=== PATIENT | male | born 1980 | race Two or more races ===

== ENCOUNTER 2016-10-31 09:40 | Emergency (ER) | payer SELFPAY ==
[2016-10-31 09:43] VITALS: BP 145/94
[2016-10-31] MEDS ORDERED: Tetan/Diph/Pertus SYR(Tdap)* 0.5 ML SYR(BOOSTRIX) use SYR IM ONE (10:54)
[2016-10-31] MEDS ORDERED: Ibuprofen TAB* 600 MG PO ONE (10:54)
--- NOTE | 2016-10-31 11:20 | ED ---
Laceration/Wound HPI - HPI Summary HPI Summary: Patient was at work when his finger ran against a structure and he suffered a cut to the back of his right thumb. He applied direct pressure to control bleeding and came to the ED. He is not sure if his tetanus is up to date. He has full function of the thumb without N/T. - History of Current Complaint Stated Complaint: RT HAND LAC Time Seen by Provider: 10/31/16 09:46 Hx Obtained From: Patient Mechanism of Injury: Sharp/Blunt Trauma Onset/Duration: Sudden Onset Aggravating: Movement Alleviating: Compression Timing: Constant Onset Severity: Moderate Current Severity: Moderate Pain Intensity: 4 Associated Signs & Symptoms: Pain Related Hx: Dominant Hand (Right) - Allergy/Home Medications Allergies/Adverse Reactions: Allergies Allergy/AdvReac Type Severity Reaction Status Date / Time No Known Allergies Allergy Verified 12/23/13 11:06 PMH/Surg Hx/FS Hx/Imm Hx Respiratory History: Reports: Hx Asthma Sensory History: Reports: Hx Contacts or Glasses Opthamlomology History: Reports: Hx Contacts or Glasses Psychiatric History: Reports: Hx Suicide Attempt - OD AT 17YO Denies: Hx Eating Disorder, Hx of Violent Episodes Against Others Infectious Disease History: No Infectious Disease History: Denies: Traveled Outside the [place] in Last 30 Days - Family History Known Family History: Positive: None - Social History Occupation: Employed Full-time Lives: With Family Alcohol Use: Rare Substance Use Type: Reports: None Smoking Status (MU): Never Smoked Tobacco Review of Systems Positive: Other - 1 cm laceration to dorsum of right thumb Negative: Paresthesia, Numbness All Other Systems Reviewed And Are Negative: Yes Physical Exam Triage Information Reviewed: Yes Vital Signs On Initial Exam: Initial Vitals Temp Pulse Resp BP Pulse Ox 99.4 F 84 20 145/94 100 10/31/16 09:41 10/31/16 09:41 10/31/16 09:41 10/31/16 09:41 10/31/16 09:41 Vital Signs Reviewed: Yes Appearance: Positive: Well-Appearing, Well-Nourished, Pain Distress Skin: Positive: Warm, Skin Color Reflects Adequate Perfusion, Dry, Tender - 1 cm laceration to dorsum of right thumb, Soft Head/Face: Positive: Normal Head/Face Inspection Eyes: Positive: EOMI, MARGA, Conjunctiva Clear ENT: Positive: Hearing grossly normal Respiratory/Lung Sounds: Positive: Breath Sounds Present Cardiovascular: Positive: RRR Musculoskeletal: Positive: Strength/ROM Intact Neurological: Positive: Sensory/Motor Intact, Alert, Oriented to Person Place, Time, NV Bundle Intact Distally Psychiatric: Positive: Affect/Mood Appropriate AVPU Assessment: Alert Procedures - Laceration/Wound Repair 1 Location: upper extremity - dorsum of right thumb Description: Linear Anesthesia: Local, 2.0%, Lido Length, Depth and Shape: 1 cm long, 3 mm wide, 2 mm deep Betadine Prep?: No Irrigated w/ Saline (ccs): 100 Laceration/Wound Explored: clean Closure: Single Layer Debridement: minimal Suture Type: Nylon - 5.0 Number of Sutures: 5 Layer Closure?: No Sterile Dressing Applied?: Yes Diagnostics - Vital Signs Vital Signs Temp Pulse Resp BP Pulse Ox 10/31/16 09:43 97.9 F 77 20 145/94 100 10/31/16 09:41 99.4 F 84 20 145/94 100 - Laboratory Lab Statement: Any lab studies that have been ordered have been reviewed, and results considered in the medical decision making process. Laceration Repair Course/Dx - Differential Dx Differental Diagnoses: Abrasion, Avulsion, Cellulitis, Dehiscence, Hematoma, Laceration, Puncture Wound - Clinical Impression Provider Diagnoses: Laceration, Tetanus toxoid inoculation Discharge - Discharge Plan Condition: Stable Disposition: HOME Patient Education Materials: Finger Laceration (ED) Additional Instructions: Keep your dressing clean, dry and in place for the next 24 hours. You may then remove and shower. Pat dry and cover with a clean, dry band-aid if you are going to be in a "dirty" environment, otherwise it can remain open to air. Do not soak the wound in any body of water until the sutures are removed. Elevate the hand above your heart and use Ibuprofen 600mg three times daily with meals for the next 5-7 days to reduce pain and swelling. Follow-up with your primary care provider or return to the emergency department in 10-12 days for suture removal. Return to the emergency department sooner if your symptoms worsen.
== END 2016-10-31 12:15 | disposition home or self-care (01) ==
LOC: ED 09:40
DX: S61.011A Laceration without foreign body of right thumb without damage to nail, initial encounter (principal); W22.01XA Walked into wall, initial encounter; Y92.9 Unspecified place or not applicable; Y99.0 Civilian activity done for income or pay
CPT/HCPCS: 12001; 99281

== ENCOUNTER 2016-11-14 09:09 | Day surgery (SDC) | payer OTHER ==
[~2016-11-14 09:09] MED LIST: Buffered Lidocaine 1% SYRIN* 5 ML/SYR SYRINGE INTRADERM ONE; NS 0.9% 1000 ML* 1,000 ML IV SCH
[2016-11-14] MEDS ORDERED: Midazolam* 1 MG/ML 2 ML VIAL (2 MG) ONE (09:15)
[2016-11-14] MEDS ORDERED: fentaNYL* 50 MCG/ML 2 ML VIAL (100 MCG VIAL) ONE (09:15)
[2016-11-14] MEDS ORDERED: Ondansetron INJ* 2 MG/ML VIAL IV PRN (09:37)
[2016-11-14] MEDS ORDERED: fentaNYL* 50 MCG/ML 2 ML VIAL (100 MCG VIAL) IV PRN (09:37)
[2016-11-14] MEDS ORDERED: Acetaminophen TAB* 325 MG PO PRN (09:37)
[2016-11-14] MEDS ORDERED: HYDROcodone/ACETAMIN 5-325 MG* 1 TAB PO PRN (09:37)
[2016-11-14] MEDS ORDERED: PROCHLORPERAZINE INJ 5 MG/ML 2 ML VIAL IV PRN (09:37)
[2016-11-14] MEDS ORDERED: ceFAZolin 2 GM PREMIX(*) 2 GM/50 ML BAG IVPB ONE (09:46)
[2016-11-14] MEDS ORDERED: Bupivacaine 0.25% SDV* 30 ML ONE (10:04)
[2016-11-14 11:10] VITALS: BP 127/93
--- NOTE | 2016-11-15 06:56 | OP ---
DATE OF OPERATION: 11/14/16 - MERGED WITH [facility] DATE OF : 80 SURGEON: rGey Rodriguez MD DAIRY FARMWORKER: JOVANNI Hallman ANESTHESIOLOGIST: Dr. Baltazar. ANESTHESIA: Local MAC. PRE-OP DIAGNOSIS: Right thumb zone T3 extensor tendon laceration. POST-OP DIAGNOSIS: Right thumb zone T3 extensor tendon laceration with traumatic arthrotomy of the right thumb metacarpophalangeal joint. OPERATIVE PROCEDURE: 1. Irrigation and debridement, right thumb metacarpophalangeal joint traumatic arthrotomy. 2. Zone T3 extensor tendon repair, right thumb. 3. Debridement of skin and subcutaneous tissue. 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 He had inability to extend the thumb tip. We had talked about risks and benefits. He elected to proceed with open repair of the tendon. ESTIMATED BLOOD LOSS: 5 mL. COMPLICATIONS: None. FINDINGS: As expected. DESCRIPTION OF PROCEDURE: Paul was seen in the preoperative holding area and the correct side, site and procedure were identified. We came back to the operating room where he got some anesthesia and then I infiltrated the operative area with 0.25% Marcaine. The arm was prepped and draped in the usual fashion and we had a formal time-out. I began by exsanguinating the arm with Esmarch. The sutures had been removed prior to prepping the arm. The margins of the oblique wound were extended proximally at the ulnar aspect of the wound and distally at the radial aspect of the wound. Full thickness flaps were raised off of the peritenon. There was an oblique laceration right over the dorsum of the MP joint involving the majority of the tendon. The capsule was sharply lacerated just deep to that and the joint was opened. The joint looked clean. It was irrigated out and then I went ahead and closed the capsule with 4-0 Prolene suture with the knots buried. I then brought the thumb tip into extension to oppose the lacerated edges of the tendon. The laceration was repaired with multiple [id number] 3-0 Ethibond sutures. It was a total of 5 sutures. There was excellent apposition of the thumb. There was no gapping when I flexed and extended the thumb tip and the MP joint. Everything looked very nice. We went ahead and irrigated out the wound and the skin was closed with 4-0 nylon simple interrupted sutures. Some of the traumatized skin edges were debrided back. The wound was then dressed with Xeroform, 4x4's, sterile Webril and then a plaster splint was applied with the MP joint and the IP joint in full extension. Tourniquet was then deflated and the fingers pinked up immediately. He was then taken to the recovery room in stable condition. [id number]/[facility] #: [id number] ERIC
== END 2016-11-14 11:30 | disposition home or self-care (01) ==
LOC: OREAST 09:09
PROVIDERS: ATTEND Orthopaedic Surgery Hand Surgery
DX: S66.221A Laceration of extensor muscle, fascia and tendon of right thumb at wrist and hand level, initial encounter (principal); W31.82XA Contact with other commercial machinery, initial encounter; Y92.69 Other specified industrial and construction area as the place of occurrence of the external cause; Y99.0 Civilian activity done for income or pay
CPT/HCPCS: J0690; J2250; J3010